=== PATIENT | female | born 1990 | race Caucasian/White ===

== ENCOUNTER 2020-09-07 05:32 | Outpatient (CLI) | payer BC ==
[~2020-09-07] VITALS: Ht 157.5 cm; Wt 70.0 kg
[~2020-09-07 05:32] MED LIST: FRS325T
== END 2020-09-07 13:16 | disposition home or self-care (01) ==
LOC: PREOP 05:32
PROVIDERS: ATTEND Obstetrics & Gynecology
DX: Z01.818 Encounter for other preprocedural examination (principal)

== ENCOUNTER 2020-09-14 04:07 | Inpatient (IN) | payer BC ==
[~2020-09-14] VITALS: Ht 160 cm; Wt 70.9 kg
[2020-09-14] VITALS (12 sets, daily range): BP systolic 94–121; BP diastolic 54–75
[2020-09-14] MEDS ORDERED: CATHETER FLUSH 10 ML SYR IV PRN (06:30)
[2020-09-14] MEDS ORDERED: metroNIDAZOLE 500MG/100ML IVPB 100 ML IV ONE ×2 (06:30→07:00)
[2020-09-14] MEDS ORDERED: LACTATED RINGERS 1,000 ML IV PRN (06:30)
[2020-09-14] MEDS ORDERED: METOCLOPRAMIDE INJ 10 MG/2 ML (REGLAN) IV ONE (06:30)
[2020-09-14] MEDS ORDERED: CITRIC ACID/SOB CIT (BICITRA) 30 ML UDC PO ONE (06:30)
[2020-09-14] MEDS ORDERED: ceFAZolin 2 GM IV Premixed 50 ML IV ONE (06:30)
[2020-09-14] MEDS: LACTATED RINGERS 1,000 ML IV PRN ×2 (06:30→07:35)
[2020-09-14] MEDS ORDERED: FAMOTIDINE 20MG/2ML IV (PEPCID) IV ONE (06:30)
[2020-09-14] MEDS ORDERED: fentaNYL INJ 100 MCG/2 ML AMP ONE (06:49)
[2020-09-14 06:51] LABS: BASOPHILS % (AUTO) 0 % (0-10); EOSINOPHILS # (AUTO) 0.1 10^3/uL (0.0-0.3); EOSINOPHILS % (AUTO) 1 % (0-10); HEMATOCRIT 30 % (35-52); HEMOGLOBIN 9.2 g/dL (11.5-16.0); LYMPHOCYTES # (AUTO) 1.8 10^3/uL (1.0-4.0); LYMPHOCYTES % (AUTO) 22 % (12-44); MEAN CORPUSCULAR HEMOGLOBIN 24 pg (25-34); MEAN CORPUSCULAR HGB CONC 31 g/dL (32-36); MEAN CORPUSCULAR VOLUME 77 fL (80-99); MEAN PLATELET VOLUME 11.6 fL (9.0-12.2); MONOCYTES # (AUTO) 0.7 10^3/uL (0.0-1.0); MONOCYTES % (AUTO) 8 % (0-12); NEUTROPHILS # (AUTO) 5.8 10^3/uL (1.8-7.8); NEUTROPHILS % (AUTO) 69 % (42-75); PLATELET COUNT 183 10^3/uL (130-400); WHITE BLOOD COUNT 8.4 10^3/uL (4.3-11.0)
[2020-09-14] MEDS ORDERED: OXYTOCIN PRE-MIX DRIP 1,000 ML IV ONE (06:51)
--- NOTE | 2020-09-14 06:57 | History & Physical ---
History and Physical Date Seen by Provider: Sep 14, 2020 Time Seen by Provider: 06:53 This patient is a 29-year-old 2 para 1 1 female with a history of IUGR with her first and with current with suspected IUGR. Patient is admitted now at 37-5/7 weeks gestation in early labor for repeat delivery. testing has been reassuring to date. Patient denies rupture membranes or bleeding but is having regular contractions every 2 to 3 minutes. This patient had a GBS culture after 35 weeks gestation. Allergies are none Medications are vitamins Medical social and surgical history is all per the antepartum record HEENT exam is normal Neck is supple no lymphadenopathy no thyromegaly Abdomen is gravid soft nontender nondistended Extremities show no clubbing or cyanosis. There is no Homans' sign. Pelvic exam is deferred monitor shows contractions every 2 minutes with a category 1 heart rate pattern Assessment and plan term at 37-5/7 weeks gestation who is scheduled for repeat delivery. She is presented in labor and we will proceed with her . We do suspect IUGR and peds is aware 37-5/7 weeks gestation in labor with previous and suspected IUGR Allergies and Home Medications Allergies Coded Allergies: No Known Drug Allergies (Verified , 10/24/06) Home Medications No Active Prescriptions or Reported Meds Patient Home Medication List Home Medication List Reviewed: Yes DEJUAN VALENCIA MD Sep 14, 2020 06:57
[2020-09-14] MEDS ORDERED: D5 LR IV SOLUTION 1,000 ML IV SCH (07:00)
[2020-09-14] MEDS ORDERED: ceFAZolin INJECTION 2,000 MG in WATER (STERILE) FOR INJECTION 10 ML IV ONE (07:00)
[2020-09-14] MEDS ORDERED: OXYC1TAB12 PO (07:16)
[2020-09-14] MEDS ORDERED: IBUP-1780 PO (07:16)
[2020-09-14] MEDS ORDERED: DOCU-143 PO (07:16)
--- NOTE | 2020-09-14 07:17 | Discharge Inst-Surgical ---
Discharge Inst-Surgical Depart Medication/Instructions New, Converted or Re-Newed RX: Transmitted to Pharmacy Consults/Follow Up Patient Instructions: As directed Orders & Referrals Follow Up Appt: RTC 1 week for incision check. Call to make follow up appt. for patient in 4 weeks. Wound Care: Remove fantasma, apply benzoin and steri strips. Activity Per routine post instructions. Diet as tolerated Patient may shower or tub bathe as desired. Continue home meds Activity Activity as Tolerated: No Diet Discharge Diet: No Restrictions DEJUAN VALENCIA MD Sep 14, 2020 07:17
[2020-09-14] MEDS ORDERED: ROPIVACAINE 5MG/ML 30ML VIAL ONE (07:42)
[2020-09-14] MEDS ORDERED: PHENYLEPHRINE 100 MCG/ML 10 ML (ANESTHESIA) SYR ONE (07:42)
[2020-09-14] MEDS: OXYTOCIN PRE-MIX DRIP 500 ML IV SCH ×2 (08:00→11:18)
[2020-09-14] MEDS ORDERED: ONDANSETRON 4 MG/2 ML (SDV) Z0FRAN IVP PRN ×2 (08:15→10:00)
[2020-09-14] MEDS ORDERED: HYDROmorphone 2 MG/ML VIAL (DILAUDID) IV ONE (08:15)
--- NOTE | 2020-09-14 09:28 | OPERATIVE REPORT ---
DATE OF SERVICE: 09/14/2020 PREOPERATIVE DIAGNOSES: A 37 and 6/7 weeks gestation in early labor with previous with presumed intrauterine growth restriction. POSTOPERATIVE DIAGNOSES: A 37 and 6/7 weeks gestation in early labor with previous with presumed intrauterine growth restriction. OPERATIVE PROCEDURE: Repeat low transverse delivery of a viable male with Apgars of 8 and 9 at 1 and 5 minutes respectively, weight of 7 pounds 11 ounces, time of 0737 and a cord blood pH of 7.27. OPERATIVE DESCRIPTION: With the patient in supine position under satisfactory spinal analgesia, she was repositioned supine and prepped and draped in the usual fashion for abdominal surgery. Lares catheter was placed in the urinary bladder. A repeat Pfannenstiel incision made through the skin with a scalpel by removing the patient's previous Pfannenstiel incisional scar. The abdomen was entered in the usual manner. Bladder retractor placed in position. A clean scalpel used to make a 4 cm hysterotomy incision transversely across the lower uterine segment that was extended by blunt dissection as well. Ricks forceps were applied to facilitate delivery of the vigorous viable male . had Apgars and stats as noted above. The infant was bulb suctioned on delivery of the head and again on completion of delivery. Umbilical cord was doubly clamped and cut, and the infant passed to the pediatric nurse in attendance for delivery. Cord bloods were obtained. Placenta delivered spontaneously Workman. It was normal with a 3-vessel cord. The uterus was exteriorized and interior wiped clean with a wet laparotomy sponge. Uterine incision then closed with running locked suture of 2-0 Vicryl. Hemostasis was complete. The uterus was returned to abdominal cavity. All blood clot and debris removed from the abdominal cavity. With sponge and needle counts correct and hemostasis assured, the anterior parietal peritoneum was closed with running suture of 2-0 Vicryl. Rectus muscles were closed with that suture as well. The rectus fascia was closed with 2-0 Vicryl, subcutaneous tissue was closed with 2-0 Vicryl and the skin was stapled. Sponge and needle counts were correct on completion of the procedure. Blood loss was around 600 mL. The patient tolerated the procedure well and was transferred to the recovery room in stable condition. The baby had remained stable at bedside. Job ID: [id number] DocumentID: [id number] Dictated Date: 09/14/2020 07:55:41 Charge Entry Clerk Date: 09/14/2020 09:28:02 Dictated By: DEJUAN VALENCIA MD
[2020-09-14] MEDS ORDERED: fentaNYL INJ 100 MCG/2 ML AMP IVP PRN (10:00)
[2020-09-14] MEDS ORDERED: MEASLES,MUMPS,RUBELLA 1 EA INJ SC ONE (10:00)
[2020-09-14] MEDS: D5 LR IV SOLUTION 1,000 ML IV SCH ×2 (10:00→15:43)
[2020-09-14] MEDS ORDERED: TETANUS,DIPTH,PERTUSS P/F (BOOSTRIX) 0.5 ML VIAL IM ONE (10:00)
[2020-09-14] MEDS: KETOROLAC 30 MG/ML VIAL IVP SCH ×3 (11:17→23:23)
[2020-09-14] MEDS: oxyCODONE/APAP 10/325MG (PERCOCET 10) TABLET PO PRN ×2 (14:26→18:58)
[2020-09-14] MEDS ORDERED: DOCUSATE SODIUM 100 MG (COLACE) CAP PO SCH (21:00)
[2020-09-14] MEDS: DOCUSATE SODIUM 100 MG (COLACE) CAP PO SCH (21:47)
[2020-09-15] MEDS: oxyCODONE/APAP 10/325MG (PERCOCET 10) TABLET PO PRN ×3 (00:43→13:51)
[2020-09-15 04:30] VITALS: BP 119/66
[2020-09-15] MEDS: KETOROLAC 30 MG/ML VIAL IVP SCH (05:24)
[2020-09-15 07:40] VITALS: BP 124/72
--- NOTE | 2020-09-15 07:43 | Progress Note ---
Standard Progress Note Progress Notes/Assess & Plan Date Seen by a Provider: Sep 15, 2020 Time Seen by a Provider: 07:42 Progress/Assessment & Plan This patient is complaint. She is ambulating, voiding, tolerating oral intake well and has good pain control. Vital Signs 09/15/20 04:30 Temp 37.8 Pulse 86 Resp 18 B/P (MAP) 119/66 (83) Pulse Ox 100 O2 Delivery Room Air Vital signs are stable. Patient is afebrile. Fundus is firm below the umbilicus and nontender. The incision is clean dry and intact Extremities show no clubbing or cyanosis. There is no Homans' sign. Assessment and plan Postoperative day #1 status post repeat delivery doing well. Plan is for routine convalescent care Final Diagnosis 37+ week repeat DEJUAN VALENCIA MD Sep 15, 2020 07:43
[2020-09-15] MEDS: DOCUSATE SODIUM 100 MG (COLACE) CAP PO SCH ×2 (07:50→19:54)
[2020-09-15] MEDS: IBUPROFEN 800 MG (MOTRIN) TAB PO SCH ×3 (12:42→23:31)
[2020-09-15 13:52] VITALS: BP 123/70
[2020-09-15] MEDS: SIMETHICONE 80 MG (MYLICON) CHEW PO SCH (19:54)
[2020-09-15 20:00] VITALS: BP 115/66
[2020-09-15 23:30] VITALS: BP 120/68
[2020-09-16] MEDS: oxyCODONE/APAP 10/325MG (PERCOCET 10) TABLET PO PRN ×2 (03:08→12:37)
[2020-09-16 06:05] VITALS: BP 100/62
[2020-09-16] MEDS: IBUPROFEN 800 MG (MOTRIN) TAB PO SCH ×2 (06:06→11:54)
--- NOTE | 2020-09-16 08:44 | Progress Note ---
Standard Progress Note Progress Notes/Assess & Plan Date Seen by a Provider: Sep 16, 2020 Time Seen by a Provider: 08:42 Progress/Assessment & Plan This patient is complaint. She is ambulating, voiding, tolerating oral intake well and has good pain control. Vital Signs 09/15/20 04:30 Temp 37.8 Pulse 86 Resp 18 B/P (MAP) 119/66 (83) Pulse Ox 100 O2 Delivery Room Air Vital signs are stable. Patient is afebrile. Fundus is firm below the umbilicus and nontender. The incision is clean dry and intact Extremities show no clubbing or cyanosis. There is no Homans' sign. Assessment and plan Postoperative day #1 status post repeat delivery doing well. Plan is for routine convalescent care September 16, [address] without complaint. She is ambulating, voiding, tolerating oral intake well and has good pain control. Vital Signs Date Time Temp Pulse Resp B/P (MAP) Pulse Ox O2 Delivery O2 Flow Rate FiO2 09/16/20 06:05 36.6 81 16 100/62 (75) 98 Room Air 09/15/20 23:30 36.5 74 16 120/68 (85) 99 Room Air 09/15/20 20:00 36.7 94 18 115/66 (82) 95 Room Air 09/15/20 13:52 37.3 85 18 123/70 (87) 99 Vital signs are stable. Patient is afebrile. The abdomen is benign. The surgical incision is clean dry and intact. Extremities show no clubbing cyanosis. There is no Homans' sign. Assessment and plan Postoperative day #2 status post repeat delivery at 37+ weeks gestation. Patient is doing well and will be discharged home with follow-up in clinic Final Diagnosis 37-week repeat DEJUAN VALENCIA MD Sep 16, 2020 08:44
[2020-09-16] MEDS: DOCUSATE SODIUM 100 MG (COLACE) CAP PO SCH (11:54)
[2020-09-16] MEDS: SIMETHICONE 80 MG (MYLICON) CHEW PO SCH (11:55)
[2020-09-16 11:57] VITALS: BP 112/70
[2020-09-19] MEDS ORDERED: IBUPROFEN 800 MG (MOTRIN) TAB PO SCH (12:00)
== END 2020-09-16 16:00 | disposition home or self-care (01) | DRG 788 ==
LOC: LDRP 06:00
PROVIDERS: ADMIT Obstetrics & Gynecology; ATTEND Obstetrics & Gynecology
PROC: 10D00Z1 Extraction of Products of Conception, Low, Open Approach (ICD-10-PCS; principal; 2020-09-14 07:15)
DX: O34.211 Maternal care for low transverse scar from previous cesarean delivery (principal); Z3A.37 37 weeks gestation of pregnancy; Z37.0 Single live birth; O36.5930 Maternal care for other known or suspected poor fetal growth, third trimester, not applicable or unspecified
CPT/HCPCS: 36415; 84443; 85025; 86703; 86762; 86780; 86850; 86900; 86901; 87081; 87340